=== PATIENT | female | born 1935 | race Caucasian/White ===

== ENCOUNTER 2017-05-17 20:43 | Emergency (ER) | payer MEDICARE, OTHER ==
--- NOTE | 2017-05-17 21:16 | EDM.PDOC ---
ED HPI GENERAL MEDICAL PROBLEM - General Chief Complaint: General Stated Complaint: HYPOTENSIVE Time Seen by Provider: 05/17/17 21:00 Source of Information: Reports: Patient History Limitations: Reports: No Limitations - History of Present Illness INITIAL COMMENTS - FREE TEXT/NARRATIVE: According to patient she had sharp pain in her left chest which was for few seconds on and off . So she took a nitro in the evening, after which she felt dizzy and took her pressure, it was 94/64mmhg. She has no chest pain, shortness of breath or nausea or vomiting. No LOC or syncope. Pt is in the emergency room, claims she feels fine now. Onset: Today Location: Reports: Chest Quality: Reports: Ache Severity: Mild Improves with: Reports: None Worsens with: Reports: None Associated Symptoms: Denies: Confusion, Chest Pain, Cough, Fever/Chills, Headaches, Nausea/Vomiting, Rash, Seizure, Shortness of Breath, Weakness - Related Data Allergies Allergy/AdvReac Type Severity Reaction Status Date / Time codeine Allergy Nausea Verified 01/07/14 13:31 tramadol Allergy Nausea and Verified 05/07/14 22:28 Vomiting Home Meds: Home Meds Amitriptyline [Elavil] 25 mg PO 01/07/14 [History] Brimonidine [Alphagan P 0.1% Ophth Soln] 1 drop OP TID 01/07/14 [History] Calcium Carbonate [Calcium] 600 mg PO 01/07/14 [History] Esomeprazole [NexIUM] 40 mg PO DAILY 01/07/14 [History] Latanoprost [Xalatan] 2.5 ml OP 01/07/14 [History] NIFEdipine [Afeditab CR] 30 mg PO DAILY 01/07/14 [History] Sertraline HCl [Sertraline HCl] 01/07/14 [History] Ketoprofen 75 mg PO TID #60 capsule 05/07/14 [Rx] Social & Family History - Tobacco Use Smoking Status *Q: Never Smoker Second Hand Smoke Exposure: No - Alcohol Use Days Per Week of Alcohol Use: 7 Number of Drinks Per Day: 1 Total Drinks Per Week: 7 - Recreational Drug Use Recreational Drug Use: No ED ROS GENERAL - Review of Systems Review Of Systems: See Below Constitutional: Denies: Fever, Chills, Fatigue, Night Sweats HEENT: Denies: Sinus Problem, Throat Pain, Throat Swelling Respiratory: Denies: Cough, Sputum Cardiovascular: Reports: Chest Pain. Denies: Lightheadedness GI/Abdominal: Denies: Abdominal Pain, Constipation, Diarrhea, Nausea, Vomiting : Denies: Dysuria, Flank Pain Musculoskeletal: Denies: Shoulder Pain, Foot Pain, Joint Pain, Joint Swelling Skin: Denies: Cyanosis, Jaundice, Pruritis, Rash ED EXAM, GENERAL - Physical Exam Exam: See Below EKG INTERPRETATION EKG Date: 05/17/17 Rhythm: NSR [place]: Normal P-Wave: Present QRS: Normal ST-T: Normal QT: Normal Course - Vital Signs Text/Narrative:: Pt is feeling better now. Her BP is 115/64mmhg now. Her EKG has not acute changes. The chest pain she gets last for few seconds and sharp. Appears like chest wall pain or intercostal spasms. I have advised opt to only take nitro, if she has precardial pain, back pain or epigastric pain, which lasts for more than 4minutes. pt is clinically stable. Advised to followup with her machine buffer with next appointment. - Orders/Labs/Meds Orders: Active Orders 24 hr Category Date Time Status EKG Documentation Completion [RC] ASDIRECTED Care 05/17/17 21:06 Active Departure - Departure Time of Disposition: 21:15 Disposition: Home, Self-Care 01 Condition: Fair Clinical Impression: Chest pain - Discharge Information Forms: ED Department Discharge - Problem List & Annotations (1) Chest pain SNOMED Code(s): 05155422 Code(s): R07.9 - CHEST PAIN, UNSPECIFIED Status: Acute - Problem List Review Problem List Initiated/Reviewed/Updated: Yes - My Orders Last 24 Hours: My Active Orders 05/17/17 21:06 EKG Documentation Completion [RC] ASDIRECTED - Assessment/Plan Last 24 Hours: My Active Orders 05/17/17 21:06 EKG Documentation Completion [RC] ASDIRECTED Assessment:: Non cardiac chest pain Plan: Pt is feeling better now. Her BP is 115/64mmhg now. Her EKG has not acute changes. The chest pain she gets last for few seconds and sharp. Appears like chest wall pain or intercostal spasms. I have advised opt to only take nitro, if she has precardial pain, back pain or epigastric pain, which lasts for more than 4minutes. pt is clinically stable. Advised to followup with her machine buffer with next appointment.
== END 2017-05-17 21:35 | disposition home or self-care (01) ==
LOC: LB.ED 20:43
DX: R07.9 Chest pain, unspecified (principal); Z88.5 Allergy status to narcotic agent; Z88.6 Allergy status to analgesic agent; Z79.899 Other long term (current) drug therapy
CPT/HCPCS: 93005; 99284; 99284-25

== ENCOUNTER 2017-08-12 13:25 | Emergency (ER) | payer MEDICARE, OTHER ==
[2017-08-12] MEDS ORDERED: Sodium Chloride 0.9% 10 ML Syringe FLUSH PRN (13:31)
[2017-08-12] MEDS ORDERED: Morphine 2 MG/ML Syringe IVPUSH ONE (13:36)
[2017-08-12] MEDS ORDERED: Morphine 2 MG/ML Syringe ONE (13:40)
[2017-08-12] MEDS ORDERED: Aspirin 81 MG Tab.Chew PO ONE (13:40)
--- NOTE | 2017-08-12 13:46 | EDM.PDOC ---
ED HPI GENERAL MEDICAL PROBLEM - General Chief Complaint: Chest Pain Stated Complaint: chest pain Time Seen by Provider: 08/12/17 13:30 Source of Information: Reports: Patient, RN History Limitations: Reports: No Limitations - History of Present Illness INITIAL COMMENTS - FREE TEXT/NARRATIVE: 81 yr female presents with chest heaviness and has on/off for 2 days. states it was about 7 at beginning and 4 now after MS and after ASA. Will give nitro sl. States she had one yesterday and didn't relieve her pain. States the pain was relieved yesterday around 3pm and back this am when waking up. States 4 stent placed in March 2017 this year. Pain improved yesterday after walking. LE Pt remained alert and talkative during this visit. Pain was eased with use of MS. Pt had been at cardiac rehab and reported her chest pain, before presenting to ER. Discussed lab results and EKG with pt. Troponins are negative. and d dimer negative. EKG shows NSR with no ST changes. Chest x-ray normal for pt. Labs reviewed. Recommend rest and monitor for any return of chest pain. Recommend no driving today and have family member with her today. Recommend use of nitro. at home as needed for return of chest pain and cautioned to be at rest and sitting when taking nitro. Recommend rest and limit stress with oncoming holidays. Pt had been writing cards/letters for the season and noted tension to neck and shoulders with this. Pt had reported pain got better at home with activity/walking. Pt states understanding. States she is ready for end of her life any day. States she is at peace with everything. States her has been for 12 year and has had a good life and is not afraid of and dying. 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 Return to ER if return of chest pain. left mid axillary Pain Score (Numeric/FACES): 0 - Related Data Allergies Allergy/AdvReac Type Severity Reaction Status Date / Time codeine Allergy Nausea Verified 08/12/17 13:31 tramadol Allergy Nausea and Verified 08/12/17 13:31 Vomiting Home Meds: Home Meds Amitriptyline [Elavil] 25 mg PO 01/07/14 [History] Brimonidine [Alphagan P 0.1% Ophth Soln] 1 drop OP TID 01/07/14 [History] Calcium Carbonate [Calcium] 600 mg PO 01/07/14 [History] Esomeprazole [NexIUM] 40 mg PO DAILY 01/07/14 [History] Latanoprost [Xalatan] 2.5 ml OP 01/07/14 [History] NIFEdipine [Afeditab CR] 30 mg PO DAILY 01/07/14 [History] Sertraline HCl [Sertraline HCl] 01/07/14 [History] Ketoprofen 75 mg PO TID #60 capsule 05/07/14 [Rx] Past Medical History Cardiovascular History: Reports: Stents Other Cardiovascular History: Patient just had stents placed in the last week in [place] during a angiogram Social & Family History - Tobacco Use Smoking Status *Q: Never Smoker Second Hand Smoke Exposure: No - Alcohol Use Days Per Week of Alcohol Use: 7 Number of Drinks Per Day: 1 Total Drinks Per Week: 7 - Recreational Drug Use Recreational Drug Use: No ED ROS GENERAL - Review of Systems Review Of Systems: See Below Constitutional: Reports: No Symptoms HEENT: Reports: No Symptoms Respiratory: Reports: No Symptoms Cardiovascular: Reports: Chest Pain. Denies: Dyspnea on Exertion, Edema GI/Abdominal: Reports: No Symptoms Musculoskeletal: Reports: Shoulder Pain, Back Pain, Other (states arthritis pain to shoulders too) Skin: Reports: No Symptoms Neurological: Reports: Headache (States headache all the time and gabapentin helps) Psychiatric: Reports: No Symptoms ED EXAM, GENERAL - Physical Exam Exam: See Below Exam Limited By: No Limitations General Appearance: Alert, No Apparent Distress Eye Exam: Bilateral Eye: PERRL Ears: Normal External Exam Nose: Normal Inspection Throat/Mouth: Normal Inspection, Normal Lips Head: Atraumatic, Normocephalic Neck: Normal Inspection Respiratory/Chest: No Respiratory Distress, Lungs Clear Cardiovascular: Normal Peripheral Pulses, Regular Rate, Rhythm, No Edema, Other (pain under left breast and worse with palpation.) GI/Abdominal: Normal Bowel Sounds, Soft, Non-Tender Back Exam: Normal Inspection Extremities: Normal Inspection, Non-Tender Neurological: Alert, Oriented, Normal Cognition Psychiatric: Normal Affect, Normal Mood Skin Exam: Warm, Dry, Normal Color Lymphatic: No Adenopathy Course - Vital Signs Last Recorded V/S: Last Vital Signs Temp 98.6 F 08/12/17 13:30 Pulse 69 08/12/17 13:59 Resp BP 119/71 08/12/17 13:59 Pulse Ox 96 08/12/17 13:59 - Orders/Labs/Meds Labs: Laboratory Tests 08/12/17 08/12/17 08/12/17 Range/Units 13:40 13:40 13:40 WBC 5.2 (4.0-11.0) K/uL RBC 3.88 (3.80-5.80) M/uL Hgb 13.1 (11.5-16.5) g/dL Hct 38.2 (37.0-47.0) % MCV 99 H (76-96) fL MCH 33.8 H (27.0-32.0) pg MCHC 34.3 (31.0-35.0) g/dL RDW 13.0 (11.0-16.0) % Plt Count 164 (150-500) K/uL MPV 10.3 H (6.0-10.0) fL Neut % (Auto) 58.1 (45.0-70.0) % Lymph % (Auto) 23.5 (20.0-40.0) % [place] % (Auto) 15.5 H (3.0-10.0) % Eos % (Auto) 2.5 (1.0-5.0) % Baso % (Auto) 0.4 (0.0-0.5) % Neut # (Auto) 3.05 (2.00-7.50) K/uL Lymph # (Auto) 1.23 L (1.50-4.00) K/uL [place] # (Auto) 0.81 H (0.20-0.80) K/uL Eos # (Auto) 0.13 (0.04-0.40) K/uL Baso # (Auto) 0.02 (0.02-0.10) K/uL D-Dimer, Quantitative 125 (0-400) ng/mL Sodium 142 (136-145) mmol/L Potassium 4.0 (3.5-5.1) mmol/L Chloride 102 (98-107) mmol/L Carbon Dioxide 31.7 (21.0-32.0) mmol/L Anion Gap 12.3 (5.0-15.0) mmol/L BUN 15 (8-26) mg/dL Creatinine 1.14 H (0.55-1.02) mg/dL Est Cr Clr Drug Dosing 32.85 mL/min Estimated GFR (MDRD) 46 L (>60) MLS/MIN BUN/Creatinine Ratio 13.2 (6-25) Glucose 98 (74-100) mg/dL Calcium 9.7 (8.5-10.1) mg/dL Total Bilirubin 1.0 (0.0-1.0) mg/dL AST 25 (15-37) U/L ALT 27 (12-78) U/L Alkaline Phosphatase 81 (46-116) U/L Troponin I < 0.017 (0.000-0.060) ng/mL Total Protein 7.2 (6.4-8.2) g/dL Albumin 3.7 (3.4-5.0) g/dL Globulin 3.5 (2.2-4.2) g/dL Albumin/Globulin Ratio 1.1 (0.8-2.0) Meds: Medications Discontinued Medications Generic Name Dose Route Start Last Admin Trade Name Jobyq PRN Reason Stop Dose Admin Aspirin 324 mg 08/12/17 13:40 Aspirin PO 08/12/17 13:41 ONETIME ONE Morphine Sulfate 2 mg 08/12/17 13:36 Morphine IVPUSH 08/12/17 13:37 ONETIME ONE Morphine Sulfate Confirm 08/12/17 13:40 Morphine Administered 08/12/17 13:41 Dose 2 mg .ROUTE .STK-MED ONE Nitroglycerin 0.4 mg 08/12/17 13:56 Nitrostat SL 08/12/17 13:57 ONETIME ONE Sodium Chloride 10 ml 08/12/17 13:31 Saline Flush FLUSH ASDIRECTED PRN Keep Vein Open Departure - Departure Time of Disposition: 14:30 Disposition: Home, Self-Care 01 Condition: Good Clinical Impression: Chest pain Instructions: Fat and Cholesterol Restricted Diet, [id number], Angina Pectoris Referrals: PCP,None [Primary Care Provider] - Forms: ED Department Discharge Additional Instructions: Follow up with your primary care provider and your coating manager.
[2017-08-12] MEDS ORDERED: Nitroglycerin 0.4 MG Tab.SL SL ONE (13:56)
[2017-08-12 14:00] VITALS: BP 119/71
--- NOTE | 2017-08-12 20:17 | CR ---
DATE OF SERVICE: 08/12/2017 CLINICAL DATA: Chest pain. AP PORTABLE CHEST: Comparison is made to a prior exam dated 02/02/2014. The heart size is within normal limits. The aorta is ectatic. The lungs are clear. No pneumothorax. No pleural effusions. No areas of consolidation. There is a shunt catheter traversing the right hemithorax. IMPRESSION: No evidence of acute intrathoracic disease. [id number] [facility]
== END 2017-08-12 15:01 | disposition home or self-care (01) ==
LOC: LB.ED 13:25
DX: R07.9 Chest pain, unspecified (principal); Z88.5 Allergy status to narcotic agent; Z95.5 Presence of coronary angioplasty implant and graft
CPT/HCPCS: 36415; 71010; 80053; 84484; 85025; 85379; 93005; 96374; 99284; 99285-25

== ENCOUNTER 2017-08-16 09:59 | Emergency (ER) | payer MEDICARE, OTHER ==
[2017-08-16] MEDS ORDERED: Sodium Chloride 0.9% 1,000 ML IV ONE (10:18)
[2017-08-16 12:15] VITALS: BP 108/54
--- NOTE | 2017-08-16 12:45 | ER ---
HISTORY OF PRESENT ILLNESS: An 81-year-old lady here with complaints of dizziness. At one point, she was seeing lights and stars. This happened when she was in [employer] and when she got up and left the building. The patient denies any falls or injuries today. She denies any nausea. She states that she did fall last night and injured her right wrist slightly but feels it is okay. The patient states that every once in a while she will fall for no obvious reason. The patient does not feel sick. She has not been coughing. She has not been running a fever. She denies any shortness of breath today. Current medications are reviewed. The patient does take nifedipine. Plus she tells me she also takes Toprol which is not on her current list. OBJECTIVE: GENERAL APPEARANCE: The patient is awake and alert. She is in no obvious distress. VITAL SIGNS: Reviewed. Initial blood pressure is 110/53. EYES: EOMs are intact without strabismus, nystagmus, or ptosis. The patient is status post cataract surgery. HEAD: Normocephalic. The patient has good and full range of motion of the head and neck area today without any pain. LUNGS: Clear. CARDIAC: Heart sounds are distinct without murmurs. SKIN: Warm and dry. EXTREMITIES: Examining the patient's right wrist reveals minimal swelling present over the dorsal aspect of the wrist. The patient can flex and extend the wrist with mild discomfort. LAB AND X-RAY STUDIES: Labs include CBC which is unremarkable. ACP is also okay. Orthostatic blood pressures were obtained and her blood pressure does drop. From sitting to standing, she drops down 8 points systolic and just a couple of points diastolic. We did give the patient a fluid bolus of about 700 to 800 mL at this time. The patient feels fine and she is declining an x-ray on the wrist today. DIAGNOSES: 1. Hypotension. 2. Contusion injury to right. TREATMENT PLAN: 1. I advised the patient to reduce her Toprol dose by breaking the pill in half. She thinks she takes 50 mg a day. This will drop her down to 25 mg a day. 2. She is to stay on the nifedipine, and we also gave the patient a wrist brace for the right wrist. 3. She tells me that she plans on calling the clinic tomorrow to get in with her primary care provider for recheck next week, and I fully agree with this. The patient needs a fairly quick followup. She also wants to see her member service specialist before leaving for the winter [place] go [place]. 4. The patient has no further questions. DIPAK/LUKASZ /[id number]
== END 2017-08-16 11:20 | disposition home or self-care (01) ==
LOC: LB.ED 09:59
DX: S60.211A Contusion of right wrist, initial encounter (principal); I95.9 Hypotension, unspecified; W19.XXXA Unspecified fall, initial encounter
CPT/HCPCS: 36415; 80048; 85025; 96360; 99284; J7040; 99282

== ENCOUNTER 2018-05-26 02:27 | Emergency (ER) | payer MEDICARE, OTHER ==
[2018-05-26] MEDS ORDERED: Sodium Chloride 0.9% 10 ML Syringe FLUSH PRN (02:59)
[2018-05-26] MEDS ORDERED: Ondansetron 4 MG Tab.DIS ONE (03:00)
--- NOTE | 2018-05-26 03:05 | EDM.PDOC ---
ED HPI GENERAL MEDICAL PROBLEM - General Chief Complaint: General Stated Complaint: VOMITING Time Seen by Provider: 05/26/18 02:50 Source of Information: Reports: Patient History Limitations: Reports: No Limitations - History of Present Illness INITIAL COMMENTS - FREE TEXT/NARRATIVE: According to daughter, patient has had 4 episodes of vomiting today. she has end stage brain tumor and has chronic headache. Pt has been taking oxycodone 5mg every 2 hrs PRN, but today has been taking her oxycodone every 2 hrs. no abdominal bloating or pain. no fever or chills. Does c/o lower chest pain, which hurts when she takes deep breath, started today afternoon since she had episodes of vomiting. Onset: Today Onset Date: 05/25/18 Onset Time: 12:00 Associated Symptoms: Reports: Chest Pain, Headaches, Nausea/Vomiting, Weakness. Denies: Confusion, Cough, Diaphoresis, Fever/Chills, Malaise, Rash, Seizure, Shortness of Breath, Syncope headache Pain Score (Numeric/FACES): 9 - Related Data Allergies Allergy/AdvReac Type Severity Reaction Status Date / Time codeine Allergy Nausea Verified 04/18/18 23:55 tramadol Allergy Nausea and Verified 04/18/18 23:55 Vomiting Home Meds: Home Meds Brimonidine [Alphagan P 0.1% Ophth Soln] 1 drop OP BID 01/07/14 [History] Esomeprazole [NexIUM] 40 mg PO DAILY 01/07/14 [History] Latanoprost [Xalatan] 2.5 ml OP DAILY 01/07/14 [History] Acetaminophen/HYDROcodone [Holderness 325-5 MG] 1 tab PO Q4H PRN 04/19/18 [History] Ascorbic Acid [Vitamin C] 1,000 mg PO DAILY 04/19/18 [History] Aspirin 81 mg PO DAILY 04/19/18 [History] Calcium Carbonate/Vitamin D3 [Caltrate-600 with Vit D Tab] 1 each PO BID [History] Cholecalciferol (Vitamin D3) [Vitamin D3] 1,000 unit PO DAILY 04/19/18 [History] Clopidogrel Bisulfate [Clopidogrel] 75 mg PO DAILY 04/19/18 [History] Gabapentin [Neurontin] 100 mg PO BEDTIME 04/19/18 [History] Hydroxychloroquine Sulfate [Plaquenil] 200 mg PO QPM 04/19/18 [History] Imipramine HCl [Imipramine] 25 mg PO BEDTIME 04/19/18 [History] Latanoprost [Xalatan] 2.5 ml OP BID 04/19/18 [History] NIFEdipine [Nifedipine ER] 60 mg PO DAILY 04/19/18 [History] Nitroglycerin 0.4 mg SL ASDIRECTED PRN 04/19/18 [History] Pilocarpine HCl [Salagen] 5 mg PO QID PRN 04/19/18 [History] Propranolol [Inderal] 10 mg PO BID 04/19/18 [History] Simvastatin 20 mg PO QPM 04/19/18 [History] Triamcinolone Acetonide [Triamcinolone Acetonide 0.1% Crm] 1 applic TOP ASDIRECTED PRN 04/19/18 [History] Past Medical History Cardiovascular History: Reports: CAD, High Cholesterol, Hypertension, Stents, Other (See Below) Other Cardiovascular History: aortic stenosis Genitourinary History: Reports: Urinary Incontinence, UTI, Recurrent 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 Denies: Fever, Chills, Fatigue, Night Sweats , Diaphoresis HEENT: Denies: Rhinitis, Throat Pain, Throat Swelling, Vertigo, Vision Change Respiratory: Reports: Pleuritic Chest Pain. Denies: Shortness of Breath, Cough , Sputum Cardiovascular: Denies: Dyspnea on Exertion, Edema, Lightheadedness Endocrine: Denies: Fatigue GI/Abdominal: Reports: Constipation, Flatus, Nausea, Vomiting. Denies: Abdominal Pain, Diarrhea, Difficulty Swallowing, Distension : Denies: Dysuria, Flank Pain Musculoskeletal: Denies: Joint Pain, Joint Swelling Skin: Denies: Bruising, Pruritis, Rash, Erythema Neurological: Reports: Headache, Weakness. Denies: Confusion, Dizziness, Numbness, Paresthesia, Tingling ED EXAM, GENERAL - Physical Exam Exam: See Below Exam Limited By: No Limitations General Appearance: Alert, WD/WN, No Apparent Distress, Other (Ill appearance, hydration appears appropriate) Eye Exam: Bilateral Eye: EOMI, PERRL Ears: Normal External Exam, Normal Canal, Hearing Grossly Normal, Normal TMs Ear Exam: Bilateral Ear: Auricle Normal, TM normal Nose: Normal Inspection, Normal Mucosa, No Blood Throat/Mouth: Normal Inspection, Normal Lips, Normal Teeth, Normal Gums, Normal Oropharynx, Normal Voice, No Airway Compromise Head: Atraumatic, Normocephalic Neck: Normal Inspection, Supple, Non-Tender, Full Range of Motion Respiratory/Chest: No Respiratory Distress, Lungs Clear, Normal Breath Sounds, No Accessory Muscle Use, Other (Pt is tender over the lower costochondral junctions to pressure.) Cardiovascular: Normal Peripheral Pulses, Regular Rate, Rhythm, No Edema, No Gallop, No JVD, No Murmur, No Rub GI/Abdominal: Normal Bowel Sounds, Soft, Non-Tender, No Organomegaly, No Distention, No Abnormal Bruit, No Mass Extremities: Normal Inspection, Non-Tender. No: Pedal Edema Neurological: Alert, Oriented, Normal Cognition Course - Vital Signs Text/Narrative:: Pt has been taking oxycodone every 2 hrs for her headache. also according to family she has been taking prednisone. this might be related to overuse of oxycodone. pt has not been prescribed any antiemetics. Her hydration appears appropriate. She does have some costochondral tenderness over the lower chest wall, which might be related to her vomiting. Pt's CBC appears normal.Her BMp shows normal electrolyte and her creat is 0.7 and BUN of 10.I have reassured patient and family that she is not dehydrated. The cause of her nausea and few episodes of vomiting, can be related to increase in her hydrocodone recently. I have counselled patient. She did recieve zofran 4mg orally and has not had any vomiting in the emergency room. She was sent home with 6 tabs to use as needed every 8 hrs. Also as she is needing large amounts of hydrocodone. It would be reasoanable to start patient on long acting opiod with short acting opiod for break through pain. Also patient advised to watch for constipation. advised dulcolax 10mg twice daily to prevent it. Pt claims Dr. Portillo is her primary care, I have advised her to call his office in the morning and discuss pain management with him. Last Recorded V/S: Last Vital Signs Temp 98.2 F 05/26/18 03:39 Pulse 52 L 05/26/18 03:39 Resp 16 05/26/18 03:39 BP 162/92 H 05/26/18 03:39 Pulse Ox 97 05/26/18 03:39 - Orders/Labs/Meds Orders: Active Orders 24 hr Category Date Time Status Peripheral IV Insertion Adult [OM.PC] Routine Oth 05/26/18 02:59 Ordered Labs: Laboratory Tests 05/26/18 05/26/18 Range/Units 03:10 03:10 WBC 5.6 D (4.0-11.0) K/uL RBC 3.81 (3.80-5.80) M/uL Hgb 12.7 (11.5-16.5) g/dL Hct 36.2 L (37.0-47.0) % MCV 95 (76-96) fL MCH 33.3 H (27.0-32.0) pg MCHC 35.1 H (31.0-35.0) g/dL RDW 12.1 (11.0-16.0) % Plt Count 165 (150-500) K/uL MPV 10.0 (6.0-10.0) fL Neut % (Auto) 69.1 (45.0-70.0) % Lymph % (Auto) 15.7 L (20.0-40.0) % [place] % (Auto) 12.7 H (3.0-10.0) % Eos % (Auto) 2.3 (1.0-5.0) % Baso % (Auto) 0.2 (0.0-0.5) % Neut # (Auto) 3.88 (2.00-7.50) K/uL Lymph # (Auto) 0.88 L (1.50-4.00) K/uL [place] # (Auto) 0.71 (0.20-0.80) K/uL Eos # (Auto) 0.13 (0.04-0.40) K/uL Baso # (Auto) 0.01 L (0.02-0.10) K/uL Sodium 136 (136-145) mmol/L Potassium 3.4 L (3.5-5.1) mmol/L Chloride 96 L (98-107) mmol/L Carbon Dioxide 29.1 (21.0-32.0) mmol/L Anion Gap 14.3 (5.0-15.0) mmol/L BUN 10 D (8-26) mg/dL Creatinine 0.77 D (0.55-1.02) mg/dL Est Cr Clr Drug Dosing TNP Estimated GFR (MDRD) > 60 (>60) MLS/MIN BUN/Creatinine Ratio 13.0 (6-25) Glucose 113 H (74-100) mg/dL Calcium 8.9 (8.5-10.1) mg/dL Meds: Medications Discontinued Medications Generic Name Dose Route Start Last Admin Trade Name Freq PRN Reason Stop Dose Admin Sodium Chloride 500 mls @ 500 mls/hr 05/26/18 02:58 05/26/18 04:34 Normal Saline IV 05/26/18 03:57 Not Given .BOLUS ONE Ondansetron HCl 4 mg 05/26/18 02:58 05/26/18 04:34 Zofran IVPUSH 05/26/18 02:59 Not Given ONETIME ONE Ondansetron HCl 4 mg 05/26/18 03:22 05/26/18 03:30 Zofran Odt PO 05/26/18 03:23 4 mg ONETIME ONE Administration Ondansetron HCl 20 mg 05/26/18 03:00 Zofran Odt .ROUTE 05/26/18 03:01 .STK-MED ONE Sodium Chloride 10 ml 05/26/18 02:59 Saline Flush FLUSH ASDIRECTED PRN Keep Vein Open Departure - Departure Time of Disposition: 04:00 Disposition: Home, Self-Care 01 Condition: Fair Clinical Impression: Nausea & vomiting - Discharge Information Instructions: Acetaminophen; Hydrocodone tablets or capsules, Ondansetron oral dissolving tablet, Nausea and Vomiting, Adult, [id number] Forms: ED Department Discharge Additional Instructions: Call Dr. Portillo's nurse tomorrow about a new pain medication. Use the zofran as needed for the nausea 1 tab every 8 hours. If you have any questions or concerns after you go home, please call and we will do our best to help. Take a stool softner one a day. - Problem List & Annotations (1) Nausea & vomiting SNOMED Code(s): 30992480 Code(s): R11.2 - NAUSEA WITH VOMITING, UNSPECIFIED Status: Acute - Problem List Review Problem List Initiated/Reviewed/Updated: Yes - My Orders Last 24 Hours: My Active Orders 05/26/18 02:59 Peripheral IV Insertion Adult [OM.PC] Routine - Assessment/Plan Last 24 Hours: My Active Orders 05/26/18 02:59 Peripheral IV Insertion Adult [OM.PC] Routine Assessment:: Opiod induced vomiting Plan: Pt has been taking oxycodone every 2 hrs for her headache. also according to family she has been taking prednisone. this might be related to overuse of oxycodone. pt has not been prescribed any antiemetics. Her hydration appears appropriate. She does have some costochondral tenderness over the lower chest wall, which might be related to her vomiting. Pt's CBC appears normal.Her BMp shows normal electrolyte and her creat is 0.7 and BUN of 10.I have reassured patient and family that she is not dehydrated. The cause of her nausea and few episodes of vomiting, can be related to increase in her hydrocodone recently. I have counselled patient. She did recieve zofran 4mg orally and has not had any vomiting in the emergency room. She was sent home with 6 tabs to use as needed every 8 hrs. Also as she is needing large amounts of hydrocodone. It would be reasoanable to start patient on long acting opiod with short acting opiod for break through pain. Also patient advised to watch for constipation. advised dulcolax 10mg twice daily to prevent it. Pt claims Dr. Portillo is her primary care, I have advised her to call his office in the morning and discuss pain management with him.
[2018-05-26] MEDS: Ondansetron 4 MG Tab.DIS PO ONE (03:30)
[2018-05-26 03:44] VITALS: BP 162/92
[2018-05-26] MEDS: Ondansetron 4 MG/2 ML SDV IVPUSH ONE (04:34)
[2018-05-26] MEDS: Sodium Chloride 0.9% 500 ML IV ONE (04:34)
== END 2018-05-26 04:15 | disposition home or self-care (01) ==
LOC: LB.ED 02:27
DX: R11.2 Nausea with vomiting, unspecified (principal); Z88.5 Allergy status to narcotic agent; Z88.8 Allergy status to other drugs, medicaments and biological substances
CPT/HCPCS: 36415; 80048; 85025; 99284; A9270-GY

== ENCOUNTER 2018-09-27 21:39 | Emergency (ER) | payer MEDICARE, OTHER ==
[2018-09-27] MEDS: LORazepam 2 MG/ML SDV IM ONE (22:05)
[2018-09-28 00:13] VITALS: BP 141/106
--- NOTE | 2018-09-28 06:26 | EDM.PDOC ---
ED HPI GENERAL MEDICAL PROBLEM - General Chief Complaint: General Stated Complaint: FALL Time Seen by Provider: 09/27/18 21:55 Source of Information: Reports: Fdc Records, RN, RN Notes Reviewed History Limitations: Reports: Other (History of Brain Tumor) - History of Present Illness INITIAL COMMENTS - FREE TEXT/NARRATIVE: This is a 82yo F here for a recent fall. She has had increasing confusion due to progression of her brain tumor and likely sundowning. Patient currently denies any pain but is falling asleep during questions and exam. Duration: Resolved Prior to Arrival Location: Reports: Upper Extremity, Right Improves with: Reports: None Worsens with: Reports: None - Related Data Allergies Allergy/AdvReac Type Severity Reaction Status Date / Time codeine Allergy Nausea Verified 09/02/18 13:45 tramadol Allergy Nausea and Verified 09/02/18 13:45 Vomiting Home Meds: Home Meds Esomeprazole [NexIUM] 40 mg PO DAILY 01/07/14 [History] NIFEdipine [Nifedipine ER] 60 mg PO DAILY 04/19/18 [History] Propranolol [Inderal] 10 mg PO BID 04/19/18 [History] Albuterol Sulfate 2.5 mg IH Q2H PRN 09/14/18 [History] Brimonidine [Alphagan 0.2% Ophth Soln] 1 drop EYEBOTH BID@0800,1200 09/14/18 [ History] Dexamethasone 4 mg PO QID 09/14/18 [History] LORazepam [Ativan] 0.5 mg PO Q4H PRN 09/14/18 [History] Latanoprost/Pf [Latanoprost 0.005% Eye Drop] 1 drop EYEBOTH QPM 09/14/18 [ History] Melatonin 9 mg PO QPM 09/14/18 [History] Miconazole [Miconazole 2% Crm] 30 gm TOP BID 09/14/18 [History] Morphine [MS Contin] 15 mg PO TID 09/14/18 [History] Pilocarpine [Salagen] 5 mg PO QID 09/14/18 [History] Sennosides/Docusate Sodium [Senna Plus Tablet] 1 tab PO BID 09/14/18 [History] fentaNYL [Duragesic] 50 mcg TD Q48H 09/14/18 [History] traZODone HCl [Trazodone HCl] 50 mg PO QPM 09/14/18 [History] Past Medical History HEENT History: Reports: Hard of Hearing, Impaired Vision Cardiovascular History: Reports: CAD, High Cholesterol, Hypertension, Stents, Other (See Below) Other Cardiovascular History: aortic stenosis Genitourinary History: Reports: Urinary Incontinence, UTI, Recurrent 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: Musculoskeletal History: Reports: Arthritis Neurological History: Reports: Headaches, Chronic, Vertigo Other Neuro History: Brain Ca with mets Psychiatric History: Reports: Depression, Other (See Below) Other Psychiatric History: insomnia Hematologic History: Reports: Folic Acid Oncologic (Cancer) History: Reports: Brain, Metastatic - Infectious Disease History Infectious Disease History: Reports: Chicken Pox - Past Surgical History Cardiovascular Surgical History: Reports: Coronary Artery Stent Female Surgical History: Reports: None Neurological Surgical History: Reports: None Musculoskeletal Surgical History: Reports: None Social & Family History - Family History Family Medical History: Noncontributory - Tobacco Use Smoking Status *Q: Unknown Ever Smoked Second Hand Smoke Exposure: No - Caffeine Use Caffeine Use: Reports: Coffee - Recreational Drug Use Recreational Drug Use: No ED ROS GENERAL - Review of Systems Review Of Systems: ROS reveals no pertinent complaints other than HPI. ED EXAM, GENERAL - Physical Exam Exam: See Below Exam Limited By: Uncooperative General Appearance: Thin Eye Exam: Bilateral Eye: Abnormal EOM (unable to follow eye commands), PERRL, Vision Changes (has been having increasing difficulty with vision or processing) Ears: Normal External Exam Nose: Normal Inspection Throat/Mouth: Normal Inspection Head: Atraumatic, Normocephalic, Other (left cheek abrasion) Neck: Normal Inspection Respiratory/Chest: No Respiratory Distress, Lungs Clear, Normal Breath Sounds Cardiovascular: Normal Peripheral Pulses, Regular Rate, Rhythm Peripheral Pulses: 2+: Dorsalis Pedis (L), Dorsalis Pedis (R) GI/Abdominal: Normal Bowel Sounds Back Exam: Normal Inspection Extremities: Normal Inspection Neurological: Inattentive, Confused, Slow to Respond, Other (Mainly sleepy) Skin Exam: Warm, Dry, Intact, Other (right arm abrasions from fall) Course - Vital Signs Last Recorded V/S: Last Vital Signs Temp 36.4 C 09/27/18 21:40 Pulse 98 09/27/18 21:40 Resp 20 09/27/18 21:40 BP 141/106 H 09/27/18 21:40 Pulse Ox 98 09/27/18 21:40 - Orders/Labs/Meds Meds: Medications Discontinued Medications Generic Name Dose Route Start Last Admin Trade Name Steve PRN Reason Stop Dose Admin Lorazepam 1 mg 09/27/18 22:00 09/27/18 22:05 Ativan IM 09/27/18 22:01 1 mg ONETIME ONE Administration Departure - Departure Time of Disposition: 22:30 Disposition: DC/Tfer to [facility] Condition: Fair Clinical Impression: Brain tumor, Sundowning Fall at assisted Qualifiers: Encounter type: initial encounter Qualified Code(s): W19.XXXA - Unspecified fall, initial encounter; Y92.129 - Unspecified place in assisted as the place of occurrence of the external cause - Discharge Information Referrals: PCP,None [Primary Care Provider] - Forms: ED Department Discharge Additional Instructions: Keep steri-strips applied to skin tear on right arm in place and watch area for signs and symptoms of infection present. Give Ativan as ordered by Dr. Portillo for agitation. Follow up with regular provider if needed. Patient escorted to bedside in Care center and was able to go immediately to sleep when lying in bed. During wheelchair transfer patient was falling asleep constantly during transfer. Patient does appear baseline at this time.
== END 2018-09-27 22:15 ==
LOC: LB.ED 21:39
DX: D33.2 Benign neoplasm of brain, unspecified (principal); S40.811A Abrasion of right upper arm, initial encounter; F32.9 Major depressive disorder, single episode, unspecified; E78.00 Pure hypercholesterolemia, unspecified; F05 Delirium due to known physiological condition; I25.10 Atherosclerotic heart disease of native coronary artery without angina pectoris; I10 Essential (primary) hypertension; Z95.5 Presence of coronary angioplasty implant and graft; Z88.5 Allergy status to narcotic agent; Z79.899 Other long term (current) drug therapy; Y92.129 Unspecified place in nursing home as the place of occurrence of the external cause
CPT/HCPCS: 96372; 99283; 99284-25; J2060

== ENCOUNTER 2018-09-28 07:31 | Inpatient (IN) | payer MEDICARE, OTHER ==
[2018-09-28] MEDS ORDERED: Tuberculin, PPD 5 Units/0.1 ML 1 ML MDV IDERM ONE (07:43)
[2018-09-28] MEDS ORDERED: LORazepam 0.5 MG Tab PO PRN (07:44)
[2018-09-28] MEDS ORDERED: fentaNYL 50 MCG/HR Transdermal Patch TRDERM SCH (07:45)
--- NOTE | 2018-09-28 07:53 | PCM.HP ---
H&P History of Present Illness - General Date of Service: 09/28/18 Admit Problem/Dx: Admission Diagnosis/Problem Admission Diagnosis/Problem Weakness Source of Information: Fdc Records, RN History Limitations: Reports: Altered Mental Status - History of Present Illness Initial Comments - Free Text/Narative: This is a 82yo F with increasing altered mental status, recent fall last night, increasing agitation and likely worsening of her Brain tumor. She is very confused and agitated and at times combative. Her agitation has progressed the past week and worsening. Patient has gradually worsened the past few weeks. Onset of Symptoms: Reports: Gradual Duration of Symptoms: Reports: Day(s):, Getting Worse, Waxing/Waning Location: Reports: Generalized - Related Data Allergies/Adverse Reactions: Allergies Allergy/AdvReac Type Severity Reaction Status Date / Time codeine Allergy Nausea Verified 09/02/18 13:45 tramadol Allergy Nausea and Verified 09/02/18 13:45 Vomiting Home Medications: Home Meds Esomeprazole [NexIUM] 40 mg PO DAILY 01/07/14 [History] NIFEdipine [Nifedipine ER] 60 mg PO DAILY 04/19/18 [History] Propranolol [Inderal] 10 mg PO BID 04/19/18 [History] Albuterol Sulfate 2.5 mg IH Q2H PRN 09/14/18 [History] Brimonidine [Alphagan 0.2% Ophth Soln] 1 drop EYEBOTH BID@0800,1200 09/14/18 [ History] Dexamethasone 4 mg PO QID 09/14/18 [History] LORazepam [Ativan] 0.5 mg PO Q4H PRN 09/14/18 [History] Latanoprost/Pf [Latanoprost 0.005% Eye Drop] 1 drop EYEBOTH QPM 09/14/18 [ History] Melatonin 9 mg PO QPM 09/14/18 [History] Miconazole [Miconazole 2% Crm] 30 gm TOP BID 09/14/18 [History] Morphine [MS Contin] 15 mg PO TID 09/14/18 [History] Pilocarpine [Salagen] 5 mg PO QID 09/14/18 [History] Sennosides/Docusate Sodium [Senna Plus Tablet] 1 tab PO BID 09/14/18 [History] fentaNYL [Duragesic] 50 mcg TD Q48H 09/14/18 [History] traZODone HCl [Trazodone HCl] 50 mg PO QPM 09/14/18 [History] Past Medical History HEENT History: Reports: Hard of Hearing, Impaired Vision Cardiovascular History: Reports: CAD, High Cholesterol, Hypertension, Stents, Other (See Below) Other Cardiovascular History: aortic stenosis Genitourinary History: Reports: Urinary Incontinence, UTI, Recurrent 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: Musculoskeletal History: Reports: Arthritis Neurological History: Reports: Headaches, Chronic, Vertigo Other Neuro History: Brain Ca with mets Psychiatric History: Reports: Depression, Other (See Below) Other Psychiatric History: insomnia Hematologic History: Reports: Folic Acid Oncologic (Cancer) History: Reports: Brain, Metastatic - Infectious Disease History Infectious Disease History: Reports: Chicken Pox - Past Surgical History Cardiovascular Surgical History: Reports: Coronary Artery Stent Female Surgical History: Reports: None Neurological Surgical History: Reports: None Musculoskeletal Surgical History: Reports: None Social & Family History - Family History Family Medical History: Noncontributory - Caffeine Use Caffeine Use: Reports: Coffee H&P Review of Systems - Review of Systems: Review Of Systems: ROS reveals no pertinent complaints other than HPI. Exam - Exam Exam: See Below - Exam General: Moderate Distress, Obtunded Lungs: Normal Respiratory Effort, Rhonchi Cardiovascular: Regular Rhythm, Tachycardia GI/Abdominal Exam: Normal Bowel Sounds Back Exam: Normal Inspection Extremities: Normal Inspection Neurological: No: Normal Speech Neuro Extensive - Mental Status: Disorientation to Place, Disorientation to Time , Inattentive, Slow Response to Commands - Problem List (1) Palliative care patient SNOMED Code(s): 825207144 ICD Code: Z51.5 - ENCOUNTER FOR PALLIATIVE CARE Status: Chronic Priority : High (2) Brain tumor SNOMED Code(s): 012094761 ICD Code: D49.6 - NEOPLASM OF UNSPECIFIED BEHAVIOR OF BRAIN Status: Acute Priority: High (3) Sundowning SNOMED Code(s): 425558707, 742314945, 969035014 ICD Code: F05 - DELIRIUM DUE TO KNOWN PHYSIOLOGICAL CONDITION Status: Acute Priority: High (4) Ventriculoperitoneal shunt SNOMED Code(s): 70184933 - Ventriculoperitoneal shunt Status: Chronic Priority: Low Problem List Initiated/Reviewed/Updated: Yes Orders Last 24hrs: Active Orders 24 hr Category Date Time Status Patient Status [ADT] Routine ADT 09/28/18 07:43 Ordered Consult to Freelance Court Stenographer [CONS] Routine Cons 09/28/18 07:43 Ordered Consult to Infection Prevention [CONS] Routine Cons 09/28/18 07:43 Ordered Brimonidine [Alphagan 0.2% Ophth Soln] Med 09/28/18 08:00 Ordered 1 drop EYEBOTH BID@0800,1200 Dexamethasone Med 09/28/18 08:00 Ordered 8 mg PO QID Docusate Sodium/Sennosides [Senna Plus] Med 09/28/18 08:00 Ordered 1 tab PO BID Esomeprazole [NexIUM] Med 09/28/18 08:00 Ordered 40 mg PO DAILY LORazepam [Ativan] Med 09/28/18 07:44 Ordered 0.5 mg PO Q4H PRN Latanoprost/Pf [Latanoprost 0.005% Eye Drop] Med 09/28/18 20:00 Ordered 1 drop EYEBOTH QPM Miconazole [Miconazole 2% Crm] Med 09/28/18 08:00 Ordered 30 gm TOP BID Pilocarpine [Salagen] Med 09/28/18 08:00 Ordered 5 mg PO QID Tuberculin, PPD [Aplisol] Med 09/28/18 07:43 Once 5 unit IDERM ONETIME ONE fentaNYL [Duragesic] Med 09/28/18 07:45 Ordered 75 mcg TRDERM Q72H Resuscitation Status Routine Resus Stat 09/28/18 07:43 Ordered Medication Orders Brimonidine Tartrate (Alphagan 0.2% Ophth Soln) ml EYEBOTH BID@0800,1200 LISA Dexamethasone (Dexamethasone) 8 mg PO QID LISA Esomeprazole Magnesium (Nexium) 40 mg PO DAILY LISA Fentanyl (Duragesic) 75 mcg TRDERM Q72H LISA Lorazepam (Ativan) 0.5 mg PO Q4H PRN PRN Reason: Anxiety Miconazole (Miconazole 2% Crm) 30 gm TOP BID LISA Non-Formulary Medication (Latanoprost/Pf [Latanoprost 0.005% Eye Drop]) 1 drop EYEBOTH QPM LISA Non-Formulary Medication (Pilocarpine [Salagen]) 5 mg PO QID LISA Senna/Docusate Sodium (Senna Plus) 1 tab PO BID LISA Tuberculin PPD (Aplisol) 5 unit IDERM ONETIME ONE Stop: 09/28/18 07:44 Assessment/Plan Comment:: Patient placed in swing bed for further palliative care and pain control. 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 We will optimize her medications as well. Family notified and agree with plan of care.
[2018-09-28] MEDS ORDERED: Esomeprazole 40 MG Cap PO SCH (08:00)
[2018-09-28] MEDS: Brimonidine 0.2% Ophth Soln 5 ML Bottle EYEBOTH SCH ×2 (08:00→12:00)
[2018-09-28] MEDS ORDERED: fentaNYL 100 MCG/HR Transdermal Patch TRDERM SCH (09:00)
[2018-09-28] MEDS ORDERED: fentaNYL 75 MCG/HR Transdermal Patch ONE (10:04)
[2018-09-28] MEDS ORDERED: fentaNYL 100 MCG/HR Transdermal Patch ONE (10:04)
[2018-09-28] MEDS: Dexamethasone 4 MG Tab PO SCH ×4 (10:55→16:54)
[2018-09-28] MEDS ORDERED: Morphine PF 30 MG/30 ML PCA Vial ONE (11:15)
[2018-09-28] MEDS ORDERED: Morphine PF 150 MG/30 ML PCA Syringe IV SCH (11:15)
[2018-09-28] MEDS ORDERED: LORazepam 2 MG/ML SDV IM ONE (11:30)
[2018-09-28] MEDS: PILOCARPINE 5 MG PO SCH ×3 (12:00→21:08)
[2018-09-28] MEDS: Miconazole 2% Crm 30 GM Tube TOP SCH ×2 (12:00→22:45)
[2018-09-28] MEDS ORDERED: fentaNYL 75 MCG/HR Transdermal Patch TRDERM SCH (12:00)
[2018-09-28] MEDS: Morphine PF 30 MG/30 ML PCA Vial IV SCH (14:30)
[2018-09-28] MEDS: Latanoprost 0.005% Ophth Soln 2.5 ML Bottle EYEBOTH SCH (22:45)
[2018-09-28] MEDS: Dexamethasone 4 MG/ML SDV IVPUSH SCH (23:00)
[2018-09-29] MEDS: LORazepam 2 MG/ML SDV IVPUSH PRN ×6 (01:57→23:15)
[2018-09-29] MEDS: Morphine PF 30 MG/30 ML PCA Vial IV SCH ×3 (08:09→23:48)
[2018-09-29] MEDS: PILOCARPINE 5 MG PO SCH ×4 (09:55→19:08)
[2018-09-29] MEDS: Miconazole 2% Crm 30 GM Tube TOP SCH ×2 (09:55→19:07)
[2018-09-29] MEDS: Brimonidine 0.2% Ophth Soln 5 ML Bottle EYEBOTH SCH ×2 (09:55→12:02)
[2018-09-29] MEDS: Dexamethasone 4 MG/ML SDV IVPUSH SCH ×2 (10:17→19:44)
[2018-09-29] MEDS: Morphine Oral Concentrate 20 MG/ML 30 ML Bottle PO PRN ×5 (10:30→23:15)
[2018-09-29] MEDS: Latanoprost 0.005% Ophth Soln 2.5 ML Bottle EYEBOTH SCH (19:08)
[2018-09-30] MEDS: Morphine Oral Concentrate 20 MG/ML 30 ML Bottle PO PRN ×2 (06:47→13:36)
[2018-09-30] MEDS: LORazepam 2 MG/ML SDV IVPUSH PRN ×3 (06:47→19:30)
[2018-09-30] MEDS: Dexamethasone 4 MG/ML SDV IVPUSH SCH (08:30)
[2018-09-30] MEDS: Morphine PF 150 MG/30 ML PCA Syringe IV SCH (08:30)
[2018-09-30] MEDS: PILOCARPINE 5 MG PO SCH ×3 (08:50→17:01)
[2018-09-30] MEDS: Brimonidine 0.2% Ophth Soln 5 ML Bottle EYEBOTH SCH ×2 (08:50→14:54)
[2018-09-30] MEDS: Miconazole 2% Crm 30 GM Tube TOP SCH (08:50)
--- NOTE | 2018-09-30 08:50 | PCM.PN ---
- General Info Date of Service: 09/29/18 Subjective Update: According to nursing staff pt has had agitation and at times gets up and starts pulling thing around and gets aggressive. Presently on morphine SPRUE KNOCKER with basal rate of 2.5mg/hr. and ativan IV. has not been feeding due to her being obtunded. Functional Status: Reports: Pain Controlled - Review of Systems General: Reports: Other (unobtainable) - Patient Data Vitals - Most Recent: Last Vital Signs Temp 98.2 F 09/29/18 20:00 Pulse 76 09/29/18 20:00 Resp 14 09/29/18 20:00 BP 130/72 09/29/18 11:20 Pulse Ox 91 L 09/29/18 20:00 Med Orders - Current: Current Medications Brimonidine Tartrate (Alphagan 0.2% Ophth Soln) 0 ml EYEBOTH BID@0800,1200 [facility] Last Admin: 09/29/18 12:02 Dose: Not Given Dexamethasone (Dexamethasone) 4 mg IVPUSH Q12HR [facility] Last Admin: 09/30/18 08:30 Dose: 4 mg Fentanyl (Duragesic) 75 mcg TRDERM Q72H [facility] Last Admin: 09/28/18 12:00 Dose: Not Given Latanoprost (Xalatan 0.005% Ophth Soln) 0 ml EYEBOTH QPM [facility] Last Admin: 09/29/18 19:08 Dose: Not Given Lorazepam (Ativan) 1 mg IVPUSH Q4H PRN PRN Reason: Anxiety Last Admin: 09/30/18 06:47 Dose: 1 mg Miconazole (Miconazole 2% Crm) 30 gm TOP BID [facility] Last Admin: 09/29/18 19:07 Dose: Not Given Morphine Sulfate (Morphine 20 Mg/Ml Soln) 10 mg PO Q2H PRN PRN Reason: pain Last Admin: 09/30/18 06:47 Dose: 10 mg Morphine Sulfate (Morphine Talent Engineer 150 Mg In 30 Ml) 0 mg IV ASDIRECTED [facility]; Protocol Last Admin: 09/30/18 08:30 Dose: 150 mg Non-Formulary Medication (Pilocarpine [Salagen]) 5 mg PO QID [facility] Last Admin: 09/29/18 19:08 Dose: Not Given Senna/Docusate Sodium (Senna Plus) 1 tab PO BID [facility] Last Admin: 09/29/18 19:08 Dose: Not Given Discontinued Medications Dexamethasone (Dexamethasone) 8 mg PO QID [facility] Stop: 09/28/18 16:45 Last Admin: 09/28/18 16:54 Dose: Not Given Esomeprazole Magnesium (Nexium) 40 mg PO DAILY [facility] Stop: 09/28/18 16:50 Last Admin: 09/28/18 10:59 Dose: 40 mg Fentanyl (Duragesic) 100 mcg TRDERM Q72H [facility] Fentanyl (Duragesic) Confirm Administered Dose 75 mcg .ROUTE .STK-MED ONE Stop: 09/28/18 10:05 Last Admin: 09/28/18 10:37 Dose: Not Given Fentanyl (Duragesic) Confirm Administered Dose 100 mcg .ROUTE .STK-MED ONE Stop: 09/28/18 10:05 Last Admin: 09/28/18 10:42 Dose: 100 mcg Lorazepam (Ativan) 0.5 mg PO Q4H PRN PRN Reason: Anxiety Stop: 09/28/18 16:45 Last Admin: 09/28/18 10:55 Dose: 0.5 mg Lorazepam (Ativan) 1 mg IM ONETIME ONE Stop: 09/28/18 11:31 Last Admin: 09/28/18 11:35 Dose: 1 mg Morphine Sulfate (Morphine Talent Engineer 150 Mg In 30 Ml) 0 mg IV ASDIRECTED [facility]; Protocol Last Admin: 09/28/18 12:10 Dose: 1 mg Morphine Sulfate (Morphine Talent Engineer 30 Mg In 30 Ml) Confirm Administered Dose 30 mg .ROUTE .STK-MED ONE Stop: 09/28/18 11:16 Last Admin: 09/28/18 12:10 Dose: Not Given Morphine Sulfate (Morphine Talent Engineer 30 Mg In 30 Ml) 0 mg IV ASDIRECTED [facility]; Protocol Last Admin: 09/29/18 23:48 Dose: 30 mg Tuberculin PPD (Aplisol) 5 unit IDERM ONETIME ONE Stop: 09/28/18 07:44 Last Admin: 09/29/18 10:18 Dose: Not Given - Exam General: Obtunded, Other (only resposond by opening eyes to deep pain stimulus) HEENT: Pupils Equal, Pupils Reactive, EOMI, Mucous Membr. Moist/[place] Neck: Supple Lungs: Clear to Auscultation, Normal Respiratory Effort Cardiovascular: Regular Rate, Regular Rhythm GI/Abdominal Exam: Normal Bowel Sounds, Soft, Non-Tender, No Organomegaly, No Distention, No Abnormal Bruit, No Mass, Pelvis Stable Extremities: Normal Inspection, Normal Range of Motion, Non-Tender, No Pedal Edema, Normal Capillary Refill Peripheral Pulses: 2+: Radial (L), Radial (R), Dorsalis Pedis (L), Dorsalis Pedis (R) Skin: Warm, Intact - Problem List & Annotations (1) Glioblastoma multiforme of brain SNOMED Code(s): 509137635 Code(s): C71.9 - MALIGNANT NEOPLASM OF BRAIN, UNSPECIFIED Status: Acute Current Visit: No - Problem List Review Problem List Initiated/Reviewed/Updated: Yes - Assessment Assessment:: GBM with altered mental status; Poor prognosis - Plan Plan:: Pt's SPRUE KNOCKER basal was increased to 4mg /hr. Rest of the medication continued. I did have family conference with patient's 2 sons today. I have tried to reassure them that her general condition has deteriorated. present obtunded. only responds to deep pain stimulus. Her pain is controlled with morphine SPRUE KNOCKER and also ativan for agitation. Family does understand that IV fluids and tube feedings are not option as patient prefer no such procedure to be done, on her five wishes. Family does understand the prognosis and agree with the plan.
[2018-10-01] MEDS: Miconazole 2% Crm 30 GM Tube TOP SCH ×3 (00:19→22:19)
[2018-10-01] MEDS: Dexamethasone 4 MG/ML SDV IVPUSH SCH ×3 (00:19→22:19)
[2018-10-01] MEDS: PILOCARPINE 5 MG PO SCH ×5 (00:20→22:19)
[2018-10-01] MEDS: LORazepam 2 MG/ML SDV IVPUSH PRN ×2 (00:20→16:13)
[2018-10-01] MEDS: Latanoprost 0.005% Ophth Soln 2.5 ML Bottle EYEBOTH SCH ×2 (00:20→22:20)
[2018-10-01] MEDS: Brimonidine 0.2% Ophth Soln 5 ML Bottle EYEBOTH SCH ×2 (08:11→12:19)
[2018-10-01] MEDS: Morphine Oral Concentrate 20 MG/ML 30 ML Bottle PO PRN (08:54)
[2018-10-01 09:05] VITALS: BP 140/93
[2018-10-01] MEDS: fentaNYL 100 MCG/HR Transdermal Patch TRDERM SCH ×2 (09:35→09:46)
[2018-10-01] MEDS: Morphine PF 150 MG/30 ML PCA Syringe IV SCH (14:29)
--- NOTE | 2018-10-02 07:32 | PCM.DCSUM1 ---
Discharge Summary - Discharge Data Discharge Date: 10/01/18 Discharge Disposition: 20 Condition: - Patient Summary/Data Consults: Consultations 09/28/18 07:43 Consult to Tile Layer Supervisor [CONS] Routine Comment: Physician Instructions: Quantity: Consult to Infection Prevention [CONS] Routine Comment: Physician Instructions: - Discharge Plan Home Medications: Home Meds Esomeprazole [NexIUM] 40 mg PO DAILY 01/07/14 [History] NIFEdipine [Nifedipine ER] 60 mg PO DAILY 04/19/18 [History] Propranolol [Inderal] 10 mg PO BID 04/19/18 [History] Albuterol Sulfate 2.5 mg IH Q2H PRN 09/14/18 [History] Brimonidine [Alphagan 0.2% Ophth Soln] 1 drop EYEBOTH BID@0800,1200 09/14/18 [ History] Dexamethasone 4 mg PO QID 09/14/18 [History] LORazepam [Ativan] 0.5 mg PO Q4H PRN 09/14/18 [History] Latanoprost/Pf [Latanoprost 0.005% Eye Drop] 1 drop EYEBOTH QPM 09/14/18 [ History] Melatonin 9 mg PO QPM 09/14/18 [History] Miconazole [Miconazole 2% Crm] 30 gm TOP BID 09/14/18 [History] Morphine [MS Contin] 15 mg PO TID 09/14/18 [History] Pilocarpine [Salagen] 5 mg PO QID 09/14/18 [History] Sennosides/Docusate Sodium [Senna Plus Tablet] 1 tab PO BID 09/14/18 [History] fentaNYL [Duragesic] 50 mcg TD Q48H 09/14/18 [History] traZODone HCl [Trazodone HCl] 50 mg PO QPM 09/14/18 [History] - Discharge Summary/Plan Comment DC Time >30 min.: No Discharge Summary/Plan Comment: Patient peacefully at 1910 on 10/01/18. Family were notified and services offered. - General Info Date of Service: 10/01/18 - Patient Data Vitals - Most Recent: Last Vital Signs Temp 35.8 C 10/01/18 09:00 Pulse 108 H 10/01/18 09:00 Resp 18 10/01/18 09:00 BP 140/93 H 10/01/18 09:00 Pulse Ox 91 L 10/01/18 09:00 Med Orders - Current: Current Medications Discontinued Medications Brimonidine Tartrate (Alphagan 0.2% Ophth Soln) 0 ml EYEBOTH BID@0800,1200 [facility] Last Admin: 10/01/18 12:19 Dose: Not Given Dexamethasone (Dexamethasone) 8 mg PO QID [facility] Stop: 09/28/18 16:45 Last Admin: 09/28/18 16:54 Dose: Not Given Dexamethasone (Dexamethasone) 4 mg IVPUSH Q12HR [facility] Last Admin: 10/01/18 22:19 Dose: Not Given Esomeprazole Magnesium (Nexium) 40 mg PO DAILY [facility] Stop: 09/28/18 16:50 Last Admin: 09/28/18 10:59 Dose: 40 mg Fentanyl (Duragesic) 75 mcg TRDERM Q72H [facility] Last Admin: 09/28/18 12:00 Dose: Not Given Fentanyl (Duragesic) 100 mcg TRDERM Q72H [facility] Fentanyl (Duragesic) Confirm Administered Dose 75 mcg .ROUTE .STK-MED ONE Stop: 09/28/18 10:05 Last Admin: 09/28/18 10:37 Dose: Not Given Fentanyl (Duragesic) Confirm Administered Dose 100 mcg .ROUTE .STK-MED ONE Stop: 09/28/18 10:05 Last Admin: 09/28/18 10:42 Dose: 100 mcg Fentanyl (Duragesic) 100 mcg TRDERM Q72H [facility] Last Admin: 10/01/18 09:46 Dose: 100 mcg Latanoprost (Xalatan 0.005% Ophth Soln) 0 ml EYEBOTH QPM [facility] Last Admin: 10/01/18 22:20 Dose: Not Given Lorazepam (Ativan) 0.5 mg PO Q4H PRN PRN Reason: Anxiety Stop: 09/28/18 16:45 Last Admin: 09/28/18 10:55 Dose: 0.5 mg Lorazepam (Ativan) 1 mg IM ONETIME ONE Stop: 09/28/18 11:31 Last Admin: 09/28/18 11:35 Dose: 1 mg Lorazepam (Ativan) 1 mg IVPUSH Q4H PRN PRN Reason: Anxiety Last Admin: 10/01/18 16:13 Dose: 1 mg Miconazole (Miconazole 2% Crm) 30 gm TOP BID [facility] Last Admin: 10/01/18 22:19 Dose: Not Given Miscellaneous Information (Remove Patch) 1 ea TRDERM Q72H [facility] Last Admin: 10/01/18 09:15 Dose: Not Given Morphine Sulfate (Morphine Mercury Cell Cleaner 150 Mg In 30 Ml) 0 mg IV ASDIRECTED [facility]; Protocol Last Admin: 09/28/18 12:10 Dose: 1 mg Morphine Sulfate (Morphine Mercury Cell Cleaner 30 Mg In 30 Ml) Confirm Administered Dose 30 mg .ROUTE .STK-MED ONE Stop: 09/28/18 11:16 Last Admin: 09/28/18 12:10 Dose: Not Given Morphine Sulfate (Morphine Mercury Cell Cleaner 30 Mg In 30 Ml) 0 mg IV ASDIRECTED [facility]; Protocol Last Admin: 09/29/18 23:48 Dose: 30 mg Morphine Sulfate (Morphine 20 Mg/Ml Soln) 10 mg PO Q2H PRN PRN Reason: pain Last Admin: 10/01/18 08:54 Dose: 10 mg Morphine Sulfate (Morphine Mercury Cell Cleaner 150 Mg In 30 Ml) 0 mg IV ASDIRECTED [facility]; Protocol Last Admin: 10/01/18 14:29 Dose: 150 mg Non-Formulary Medication (Pilocarpine [Salagen]) 5 mg PO QID [facility] Last Admin: 10/01/18 22:19 Dose: Not Given Senna/Docusate Sodium (Senna Plus) 1 tab PO BID [facility] Last Admin: 10/01/18 22:20 Dose: Not Given Tuberculin PPD (Aplisol) 5 unit IDERM ONETIME ONE Stop: 09/28/18 07:44 Last Admin: 09/29/18 10:18 Dose: Not Given - Exam HEENT: Reports: Other (no pupilary or light reflex present) Lungs: Reports: Other (no lung sounds) Cardiovascular: Reports: Other (no heart sounds)
== END 2018-10-01 19:10 | disposition expired | DRG 951 ==
LOC: UNDOADMIN 07:31 → LB.MS 07:31
PROVIDERS: ADMIT Family Medicine; ATTEND Family Medicine
DX: Z51.5 Encounter for palliative care (principal); R40.2120 Coma scale, eyes open, to pain, unspecified time; C71.9 Malignant neoplasm of brain, unspecified; C79.9 Secondary malignant neoplasm of unspecified site; F05 Delirium due to known physiological condition; R53.1 Weakness; Z98.2 Presence of cerebrospinal fluid drainage device; I10 Essential (primary) hypertension; I25.10 Atherosclerotic heart disease of native coronary artery without angina pectoris; E78.00 Pure hypercholesterolemia, unspecified; I35.0 Nonrheumatic aortic (valve) stenosis; R32 Unspecified urinary incontinence; R42 Dizziness and giddiness; Z95.5 Presence of coronary angioplasty implant and graft; Z87.440 Personal history of urinary (tract) infections; H54.7 Unspecified visual loss; H91.90 Unspecified hearing loss, unspecified ear; Z88.5 Allergy status to narcotic agent; Z91.81 History of falling; R52 Pain, unspecified; Z79.891 Long term (current) use of opiate analgesic
CPT/HCPCS: A9270-GY; J1100; J2060; J2270; J2274; J8540